=== PATIENT | male | born 1985 | race Caucasian/White ===

== ENCOUNTER 2020-10-21 23:26 | Emergency (ER) | payer MEDICARE, OTHER ==
[~2020-10-21] VITALS: Ht 177.8 cm; Wt 121.8 kg
[2020-10-21] MEDS ORDERED: LOSA50TA37 PO (23:42)
[2020-10-21] MEDS ORDERED: BUPR75FI3 PO (23:42)
[2020-10-21] MEDS ORDERED: ESCI-8 PO (23:42)
[2020-10-21] MEDS ORDERED: TRAZ-257 PO (23:42)
[2020-10-21] MEDS ORDERED: LACT30L PO (23:42)
[2020-10-21] MEDS ORDERED: METF-960 PO (23:42)
[2020-10-22] MEDS ORDERED: MINERAL OIL 133 ML ENEMA PR ONE (00:45)
[2020-10-22] MEDS ORDERED: LACTULOSE 20 GM/30 ML SOLUTION UDCUP PO ONE (00:45)
[2020-10-22 03:00] VITALS: BP 135/79
== END 2020-10-22 03:44 | disposition home or self-care (01) ==
LOC: EMS 23:37
DX: K59.00 Constipation, unspecified (principal); F17.210 Nicotine dependence, cigarettes, uncomplicated; E11.9 Type 2 diabetes mellitus without complications; E78.00 Pure hypercholesterolemia, unspecified; I10 Essential (primary) hypertension
CPT/HCPCS: 74018; 82962; 99284